=== PATIENT | male | born 1975 | race Caucasian/White ===

== ENCOUNTER 2021-02-02 13:16 | Day surgery (SDC) | payer BC ==
[2021-02-02] MEDS ORDERED: CEFAZOLIN/SWI 1gm 1 GM/10 ML SYR ONE (14:02)
[2021-02-02] MEDS ORDERED: FENTANYL CITR 100 MCG/2 ML ONE ×4 (14:02→15:41)
[2021-02-02] MEDS ORDERED: TETANUS & DIPHTHERIA TOX,ADULT 0.5 ML VIAL ONE (14:02)
[2021-02-02] MEDS ORDERED: ONDANSETRON 4 MG/2 ML VIAL ONE (14:02)
--- NOTE | 2021-02-02 14:04 | ER ---
Nurse's Notes [facility] Name: Norman Sun Age: 45 yrs Sex: Male : 1975 Arrival Date: 02/02/2021 Time: 13:19 Bed 19 Private MD: Diagnosis: Laceration of unspecified muscle(s) and tendon(s) at lower leg level, right leg, initial encounter Presentation: 02/02 13:20 Chief complaint: Patient states: Cutting tree limbs, chain saw slipped and cut right jl7 calf. Coronavirus screen: Vaccine status: Patient reports being unvaccinated. At this time, the client does not indicate any symptoms associated with coronavirus-19. Ebola Screen: No symptoms or risks identified at this time. 13:20 Method Of Arrival: Ambulatory [facility] 13:20 Initial Sepsis Screen: Does the patient meet any 2 criteria? No. Patient's initial jl7 sepsis screen is negative. Does the patient have a suspected source of infection? No. Patient's initial sepsis screen is negative. Risk Assessment: Do you want to hurt yourself or someone else? Patient reports no desire to harm self or others. Onset of symptoms was February 02, 2021 at 13:00. 13:20 Acuity: JOSH 2 jl7 13:30 Care prior to arrival: None. Mechanism of Injury: Laceration sustained at home, while jl7 working, from power saw, Injury was accidental. Trauma event details: Injury occurred in the [facility], Injury occurred: at home. Injury occurred: February 02, 2021 Injury occurred at: 13:00. Trauma Activation: Not Applicable Physician: ED Physician; Name: ; Notified At: ; Arrived At: Physician: General Surgeon; Name: ; Notified At: ; Arrived At: Physician: Radiology; Name: ; Notified At: ; Arrived At: Physician: Respiratory; Name: ; Notified At: ; Arrived At: Physician: Lab; Name: ; Notified At: ; Arrived At: Historical: - Allergies: 14:04 No Known Allergies; jl7 - Home Meds: 14:04 None [Active]; jl7 - PMHx: 14:04 None; jl7 - PSHx: 14:04 None; jl7 - Immunization history:: Adult Immunizations not up to date. - Social history:: Smoking status: Patient reports the use of cigarette tobacco products, smokes one pack cigarettes per day. - Immunization history: Last tetanus immunization: unknown. Screenin:40 Abuse screen: Denies threats or abuse. Denies injuries from another. Tuberculosis jl7 screening: No symptoms or risk factors identified. 14:00 Nutritional screening: No deficits noted. jl7 14:00 Fall Risk IV access (20 points). jl7 Primary Survey: 13:20 NO uncontrolled hemorrhage observed. Breathing/Chest: Respiratory pattern: regular, jl7 Respiratory effort: spontaneous, unlabored, Breath sounds: clear, bilaterally. Chest inspection: symmetrical rise and fall of the chest. Circulation: Pulses: palpable right dorsalis pedis artery and left dorsalis pedis artery. Skin color: pink, Skin temperature: warm. Disability Alert. Exposure/Environment: There is no evidence of uncontrolled external bleeding. Obvious injury(ies) are noted at this time: large laceration to right calf A warming method has been applied: A warm blanket has been provided to the patient. 13:40 Reassessment Breathing/Chest Respiratory pattern Regular Respiratory effort Spontaneous jl7 Unlabored Chest inspection Symmetrical Circulation Color [place] Disability Alert. 13:40 Reassessment Airway Airway Patent. jl7 Assessment: 13:20 General: Appears in no apparent distress. uncomfortable, Behavior is calm, cooperative, jl7 appropriate for age. Pain: Complains of pain in right calf Pain currently is 5 out of 10 on a pain scale. Neuro: Level of Consciousness is awake, alert, obeys commands, Oriented to person, place, time, situation. Cardiovascular: Patient's skin is warm and dry. Respiratory: Airway is patent Respiratory effort is even, unlabored, Respiratory pattern is regular, symmetrical. Derm: Skin is pink, warm \\T\\ dry. 14:00 Reassessment: DOOR INSTALLER transported pt via stretcher to OR, unable to medicate pt in ER for jl7 pain, antibiotics, and tetanus, DOOR INSTALLER states "We'll give all that down there." As patient was wheeled out of ER room DOOR INSTALLER states "We'll take that Ancef to give to him down there." Ancef given to DOOR INSTALLER to be medicated in OR. Vital Signs: 13:20 BP 130 / 88; Pulse 108; Resp 15; Temp 98.3; Pulse Ox 98% on R/A; Weight 90.72 kg (R); jl7 Height 6 ft. 1 in. (185.42 cm); Pain 5/10; 13:20 Body Mass Index 26.39 (90.72 kg, 185.42 cm) jl7 Oriana Coma Score: 13:40 Eye Response: spontaneous(4). Verbal Response: oriented(5). Motor Response: obeys jl7 commands(6). Total: 15. Trauma Score (Adult): 13:40 Eye Response: spontaneous(1); Verbal Response: oriented(1); Motor Response: obeys jl7 commands(2); Systolic BP: > 89 mm Hg(4); Respiratory Rate: 10 to 29 per min(4); Edwards Score: 15; Trauma Score: 12 ED Course: 13:19 Patient arrived in ED. bd 13:20 Arm band placed on right wrist. jl7 13:20 Patient maintains SpO2 saturation greater than 95% on room air. Thermoregulation: warm jl7 blanket given to patient. 13:29 Ivan Morris PA is PHCP. jr8 13:29 Bruce Gould MD is Attending Physician. jr8 13:35 Alma Medina RN is Primary Nurse. jl7 13:40 Patient has correct armband on for positive identification. Bed in low position. Call 7 light in reach. Side rails up X 1. 13:55 Initial lab(s) drawn, by me, sent to lab. Inserted saline lock: 20 gauge in left jl7 antecubital area, using aseptic technique. Blood collected. 14:00 Patient admitted, IV remains in place. intact, No redness/swelling at site. jl7 14:02 Sonu Rodríguez MD is Hospitalizing Provider. jr8 14:04 Triage completed. jl7 14:11 No provider procedures requiring assistance completed. jl7 Administered Medications: 14:02 Not Given (pt to OR): Tetanus-Diphtheria Toxoid Adult 0.5 ml IM once jl7 14:02 Not Given (pt to OR): fentaNYL (PF) 50 mcg IVP once; RASS on ADMIN: Combtv4, Very jl7 Agttd3, Agttd2, Rstlss1, AlertClm0, Drwsy-1, Lt Sdtn-2, Mod Sdtn-3, Dp Sdtn-4, UnArsble-5 14:02 Not Given (pt to OR): Zofran (Ondansetron) 4 mg IVP once; over 2 minutes jl7 Intake: 13:40 PO: 0ml; IV: 0ml; Tubes: 0ml (); Total: 0ml. jl7 Output: 13:40 Urine: 0ml; Gastric: 0ml; Stool: 0; EBL: 0ml; Drainage: 0ml; Other: 0; Total: 0ml. jl7 Outcome: 14:00 Patient's length of stay was not longer than 2 hours. jl7 14:03 Decision to Hospitalize by Provider. jr8 14:19 Admitted to OR jl7 14:19 Condition: stable 14:19 Discharge instructions given to patient, Instructed on the need for admit, Demonstrated understanding of instructions. 14:20 Patient left the ED. jl7 Signatures: Julee Melton Josh, PA PA jr8 Alma Medina, RN RN jl7
--- NOTE | 2021-02-02 14:04 | EDPHYS ---
Physician Documentation [facility] Name: Norman Sun Age: 45 yrs Sex: Male : 1975 Arrival Date: 02/02/2021 Time: 13:19 Bed 19 Private MD: ED Physician Bruce Gould HPI: 02/02 13:39 This 45 yrs old Male presents to ER via Unassigned with complaints of jr8 laceration. 13:39 Onset: The symptoms/episode began/occurred acutely, just prior to arrival, today. jr8 Associated signs and symptoms: The patient has no apparent associated signs or symptoms. The patient has not experienced similar symptoms in the past. The patient has not recently seen a physician. This is a 45-year-old male patient that presented emergency room with complaints of laceration to the posterior right calf. Patient was utilizing a chain saw when he accidentally lacerated the back of his leg. Patient has a bandaged leg upon arrival with bleeding controlled at this time.. Historical: - Allergies: 14:04 No Known Allergies; jl7 - Home Meds: 14:04 None [Active]; jl7 - PMHx: 14:04 None; jl7 - PSHx: 14:04 None; jl7 - Immunization history:: Adult Immunizations not up to date. - Social history:: Smoking status: Patient reports the use of cigarette tobacco products, smokes one pack cigarettes per day. - Immunization history: Last tetanus immunization: unknown. ROS: 15:35 Constitutional: Negative for fever, chills, and weight loss, Cardiovascular: Negative jr8 for chest pain, palpitations, and edema, Respiratory: Negative for shortness of breath, cough, wheezing, and pleuritic chest pain, Abdomen/GI: Negative for abdominal pain, nausea, vomiting, diarrhea, and constipation, Back: Negative for injury and pain, Neuro: Negative for headache, weakness, numbness, tingling, and seizure. 15:35 MS/extremity: Positive for laceration, pain. 15:35 Skin: Positive for laceration(s). Exam: 15:35 Constitutional: This is a well developed, well nourished patient who is awake, alert, jr8 and in no acute distress. Cardiovascular: Regular rate and rhythm with a normal S1 and S2. No gallops, murmurs, or rubs. Normal PMI, no JVD. No pulse deficits. Respiratory: Lungs have equal breath sounds bilaterally, clear to auscultation and percussion. No rales, rhonchi or wheezes noted. No increased work of breathing, no retractions or nasal flaring. MS/ Extremity: Pulses equal, no cyanosis. Neurovascular intact. Full, normal range of motion. Neuro: Awake and alert, GCS 15, oriented to person, place, time, and situation. Cranial nerves II-XII grossly intact. Motor strength 5/5 in all extremities. Sensory grossly intact. 15:35 Skin: Patient has approximately 15 cm vertical laceration noted to the back of his right calf at the depth through the muscle belly. Bleeding controlled at this time. Moderate amount of contamination of dirt noted in wound.. Vital Signs: 13:20 BP 130 / 88; Pulse 108; Resp 15; Temp 98.3; Pulse Ox 98% on R/A; Weight 90.72 kg (R); jl7 Height 6 ft. 1 in. (185.42 cm); Pain 5/10; 13:20 Body Mass Index 26.39 (90.72 kg, 185.42 cm) jl7 Sav[place] Coma Score: 13:40 Eye Response: spontaneous(4). Verbal Response: oriented(5). Motor Response: obeys jl7 commands(6). Total: 15. Trauma Score (Adult): 13:40 Eye Response: spontaneous(1); Verbal Response: oriented(1); Motor Response: obeys jl7 commands(2); Systolic BP: > 89 mm Hg(4); Respiratory Rate: 10 to 29 per min(4); [place]annah Score: 15; Trauma Score: 12 MDM: 13:29 Patient medically screened. jr8 15:36 Data reviewed: vital signs, nurses notes, lab test result(s). Data interpreted: Pulse jr8 oximetry: on room air is 98 %. Interpretation: normal. Counseling: I had a detailed discussion with the patient and/or guardian regarding: the historical points, exam findings, and any diagnostic results supporting the discharge/admit diagnosis, lab results, the need for further work-up and treatment in the hospital. ED course: Dr. Rodríguez consulted on the case. Accepted patient to do a OR washout and closing the wound. 02/02 13:32 Order name: CBC with Diff jr8 02/02 13:32 Order name: Basic Metabolic Panel 8 02/02 13:32 Order name: Protime (+inr) 8 02/02 13:32 Order name: Ptt, Activated 8 02/02 14:01 Order name: COVID-19 : Document "Date of Symptom Onset" if Symptomatic. 02/02 13:32 Order name: IV; Complete Time: 14:02 jr8 Administered Medications: 14:02 Not Given (pt to OR): Tetanus-Diphtheria Toxoid Adult 0.5 ml IM once jl7 14:02 Not Given (pt to OR): fentaNYL (PF) 50 mcg IVP once; RASS on ADMIN: Combtv4, Very jl7 Agttd3, Agttd2, Rstlss1, AlertClm0, Drwsy-1, Lt Sdtn-2, Mod Sdtn-3, Dp Sdtn-4, UnArsble-5 14:02 Not Given (pt to OR): Zofran (Ondansetron) 4 mg IVP once; over 2 minutes jl7 Disposition: 02/03 06:40 Co-signature as Attending Physician, Bruce Gould MD I agree with the assessment and adam plan of care. Disposition Summary: 02/02/21 14:03 Hospitalization Ordered Hospitalization Status: Observation jr8 Provider: Sonu Rodríguez jrUlises Location: Operating Room [facility] Condition: Stable jr Problem: new jr8 Symptoms: are unchanged 8 Bed/Room Type: Standard [facility] Room Assignment: [facility] Diagnosis - Laceration of unspecified muscle(s) and tendon(s) at lower leg level, right leg, jr8 initial encounter Discharge Instructions: - Discharge Summary Sheet bd Forms: - SBAR form bd - Medication Reconciliation Form jr8 Signatures: Dispatcher [employer] Bruce Boone MD MD cha Roszak, Josh, PA PA jr8 Alma Medina RN RN jl7
[2021-02-02 14:19] LABS: Absolute Lymphocytes (CBC) 2.5 K/uL (0.7-4.9); Basophils % 0.3 % (0-1.3); Hematocrit 44.1 % (39.6-49.0); Lymphocytes % 24.8 % (15.3-44.8); MPV 6.9 fL (7.6-11.3); RBC Red Blood Cell Count 4.92 M/uL (4.33-5.43)
[2021-02-02 14:22] LABS: Protime INR 0.98
[2021-02-02 14:30] LABS: Potassium 3.3 mmol/L (3.5-5.1)
[2021-02-02] MEDS ORDERED: propofoL 200 MG/20 ML VIAL IV ONE (14:38)
[2021-02-02] MEDS ORDERED: METOCLOPRAMIDE 10 MG/2mL INJ ONE (14:38)
[2021-02-02] MEDS ORDERED: ACETAMINOPHEN 500 MG TAB ONE (14:38)
[2021-02-02] MEDS ORDERED: LIDOCAINE 2% MPF 5 ML VIAL ONE (14:38)
[2021-02-02] MEDS ORDERED: NA CIT/CITRIC AC 30 ML ORAL UDC ONE (14:38)
[2021-02-02] MEDS ORDERED: SUCCINYLCHOLINE 20 MG/ML (10 ML) IV ONE (14:41)
[2021-02-02] MEDS ORDERED: CELECOXIB 100 MG CAPSULE ONE (14:53)
[2021-02-02] MEDS ORDERED: Ringers Lactate 1,000 ML IV ONE (14:55)
[2021-02-02] MEDS ORDERED: MIDAZOLAM HCL 2 MG/2 ML INJ ONE (15:34)
[2021-02-02] MEDS ORDERED: ROCURONIUM 50 MG/5 ML VIAL IV ONE (15:40)
[2021-02-02] MEDS ORDERED: KETOROLAC 30 MG/ML INJ ONE (15:47)
[2021-02-02] MEDS ORDERED: dexAMETHasone 10 MG/ML VIAL ONE (15:47)
[2021-02-02 16:53] VITALS: BP 120/82; TEMP 97.7; O2SAT 98
[2021-02-02] MEDS ORDERED: CODEINE 30MG/APAP 300MG TAB ONE ×2 (17:05→17:06)
--- NOTE | 2021-02-03 03:06 | OP ---
Surgeon: Sonu Rodríguez MD Preoperative Diagnosis: Open wound of the right posterior leg. Postoperative Diagnosis: Open wound of the right posterior leg. Procedure Performed: Debridement of skin, subcutaneous tissue, muscle and then simple closure, 14 cm. Anesthesia: General. Procedure In Detail: After satisfactory induction of general anesthesia, the patient was placed in left lateral decubitus position. The right leg was prepped circumferentially with Betadine scrub, Betadine paint from the knee down. Dry sterile drape was applied in the usual manner. A scalpel was used to make an elliptical incision around skin edges. Debridement was performed of the muscle and tendon tissue as needed. The wound was jet lavage irrigated with 3 L of dilute Betadine solution. Electrocautery was used for hemostasis. Wound was extended through the gastrectomy lateral down to the soleus. There was some laceration to the soleus. Leann drain was placed deep in the wound and the wound was closed with 3-0 Prolene vertical mattresses and kyleigh. Leann drain was brought out through the wound. The suture was passed through the wound for tying after the drain was removed. Dressed with Xeroform, Kerlix. The patient tolerated procedure well and returned to recovery. YAHIR/MISTY Voice ID: [id number] Report ID: [id number] HERMINIA
== END 2021-02-02 17:15 | disposition home or self-care (01) ==
LOC: ER 13:16 → OR 14:04
PROVIDERS: ATTEND Specialist
PROC: 0KDS0ZZ Extraction of Right Lower Leg Muscle, Open Approach (ICD-10-PCS; principal; 2021-02-02 13:15)
DX: S81.801A Unspecified open wound, right lower leg, initial encounter (principal)
CPT/HCPCS: 85025; 80048; 36415; 85610; 88304; 85730; 90714; 99285; 11043; J2704; J2765; J0330; J2250; J3010 ×3; J1100; J0690; J7120; J2405

== ENCOUNTER 2023-01-02 08:06 | Emergency (ER) | payer OTHER, BC ==
--- OUTSIDE RECORDS SUMMARY | 2023-01-02 08:09 | XMS REPORT | Continuity of Care Document ---
:1975 Author Organization [facility] t Address [address] [place] [id number] Care Team Providers Name Role Phone UNKNOWN, REFFERING Primary Care Physician Unavailable Problems This patient has no known problems. Allergies, Adverse Reactions, Alerts This patient has no known allergies or adverse reactions. Medications This patient has no known medications. Procedures This patient has no known procedures. Encounters Start End Encounter Admission Attending Care Care Encounter Source Date/Time Date/Time Type Type Clinicians Facility Department ID 2016-06-19 2016-06-19 Emergency E [facility] MED [id number] [address] 20:35:00 20:35:00 [facility] Results This patient has no known results.
[2023-01-02] MEDS ORDERED: HYDROCODONE/APAP 5/325 MG TAB ONE ×2 (08:30→08:33)
[2023-01-02] MEDS ORDERED: DIAZEPAM 5 MG TABLET ONE ×2 (08:30→08:32)
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
[2023-01-02 09:21] VITALS: TEMP 98.1
[2023-01-02 09:22] VITALS: BP 136/96; O2SAT 96
== END 2023-01-02 09:16 | disposition home or self-care (01) ==
LOC: ER 08:06
DX: S13.4XXA Sprain of ligaments of cervical spine, initial encounter (principal); V59.40XA Driver of pick-up truck or van injured in collision with unspecified motor vehicles in traffic accident, initial encounter
CPT/HCPCS: 70450; 72125; 99284